=== PATIENT | female | born 1950 | race Asian ===

== ENCOUNTER 2021-12-07 13:52 | Emergency (ER) | payer MEDICARE, BC ==
[~2021-12-07] VITALS: Ht 152.4 cm; Wt 52.0 kg
[2021-12-07] MEDS ORDERED: IBUPROFEN 600MG TABLET PO STA (16:06)
[2021-12-07 16:40] LABS: BASOPHILS % 0.9 % (0.0-2.0); EOSINOPHILS % 8.3 % (0.0-5.0); HEMATOCRIT. 40.6 % (36.0-48.0); HEMOGLOBIN. 13.4 g/dL (12.0-16.0); LYMPHOCYTES % 21.4 % (20.0-50.0); MEAN CORPUSCULAR HEMOGLOBIN 29.4 pg (28.0-32.0); MEAN CORPUSCULAR VOLUME 89.1 fL (81.0-99.0); MEAN PLATELET VOLUME 6.7 fl (7.4-10.4); MONOCYTES % 6.6 % (2.0-8.0); NEUTROPHILS % 62.8 % (40.0-76.0); PLATELET 286 x1000/uL (130-400); RED BLOOD CELL COUNT 4.56 mill/uL (4.2-5.4)
[2021-12-07 16:45] LABS: CHLORIDE 110 mEq/L (98-107)
[2021-12-07 17:54] VITALS: BP 135/56
== END 2021-12-07 18:12 | disposition home or self-care (01) ==
LOC: ER 13:52
DX: R07.89 Other chest pain (principal)
CPT/HCPCS: 36415; 71045; 80053; 84484; 85025; 85379; 93005; 99285